=== PATIENT | female | born 1955 | race Caucasian/White ===

== ENCOUNTER 2019-07-06 08:18 | Day surgery (SDC) | payer BC ==
[2019-07-05 15:51] LABS: Basophils # (auto) 0 10 ^3/uL (0-0.2); Basophils % (auto) 0.3 % (0.0-2.0); Eosinophils # (auto) 0 10 ^3/uL (0-0.8); Eosinophils % (auto) 0.4 % (0.0-7.0); Hematocrit 41.5 % (36.0-46.0); Hemoglobin 14.2 g/dL (12.2-16.2); Lymphocytes # (auto) 2.5 10 ^3/uL (0.4-5.4); Lymphocytes % (auto) 19.4 % (10.0-50.0); Mean Corpuscular Hemoglobin 31.3 pg (28.0-32.0); Mean Corpuscular Hgb Conc. 34.2 g/dL (32.0-36.0); Mean Corpuscular Volume 91.4 fL (80.0-100.0); Monocytes # (auto) 0.9 10 ^3/uL (0-1.3); Monocytes % (auto) 7.1 % (0.0-12.0); Neutrophils # (auto) 9.4 10 ^3/uL (1.6-8.6); Neutrophils % (auto) 72.8 % (37.0-80.0); Nucleated Red Blood Cells % 0.1 %; Platelet Count (auto) 281 10^3/uL (140-450); Red Blood Cells 4.55 10^6/uL (4.0-5.20); Red Cell Distribution Width 12.4 % (11.8-14.3); White Blood Cell 12.9 10^3/uL (4.4-10.8)
[2019-07-05 15:52] LABS: Urine Bacteria FEW /hpf (None Seen); Urine Blood Negative /uL (Negative); Urine Mucus FEW (None Seen); Urine WBC <1 /hpf (0 - 5)
[2019-07-05 16:05] LABS: INR 1.03 (0.9-1.15)
[2019-07-05 16:07] LABS: Albumin 4.2 g/dL (3.4-5.0); Calcium 8.7 mg/dL (8.5-10.1); Potassium 3.5 mmol/L (3.5-5.1)
[2019-07-05 16:11] LABS: BUN/Creatinine Ratio 13.2; Bilirubin, Total 0.5 mg/dL (0.2-1.0); Total Protein 7.5 g/dL (6.4-8.2)
[~2019-07-06] VITALS: Ht 165.1 cm; Wt 79.4 kg
[2019-07-06] MEDS ORDERED: CLINDAMYCIN 600MG IV 50 ML IV ONE (09:44)
[2019-07-06] MEDS ORDERED: MIDAZOLAM HCL 1MG/1ML-2 ML VIAL ONE (10:14)
[2019-07-06] MEDS ORDERED: PROPOFOL 10 MG/ML 20 ML IV ONE (10:15)
[2019-07-06] MEDS ORDERED: LIDOCAINE 1% (LOCAL ANESTH.) PF 5ml SDV ONE (10:15)
[2019-07-06] MEDS ORDERED: ROCURONIUM 10MG/ML 10ML VIAL IV ONE (10:15)
[2019-07-06] MEDS ORDERED: METOCLOPRAMIDE HCL 5MG/ml INJ 2ml VIAL ONE (10:17)
[2019-07-06] MEDS ORDERED: fentaNYL CITRATE 100 MCG/2 ML VL ONE (10:26)
[2019-07-06] MEDS ORDERED: HYDROmorphone HCL 2 MG/ML VL IV PRN (10:30)
[2019-07-06] MEDS ORDERED: ONDANSETRON HCL 4 MG/2 ML VIAL IV PRN (10:30)
[2019-07-06] MEDS ORDERED: NALOXONE HCL 0.4 MG/ML VIAL IV PRN (10:30)
[2019-07-06] MEDS ORDERED: NEOSTIGMINE 1 MG/ML INJ (10mg/10ML VIAL) ONE (11:37)
[2019-07-06] MEDS ORDERED: GLYCOPYRROLATE 0.2 MG/ML 1ML VIAL ONE (11:37)
[2019-07-06] MEDS ORDERED: MEPERIDINE HCL (25 MG/ML) 1ML VIAL ONE (11:42)
[2019-07-06] MEDS: HYDROmorphone HCL 2 MG/ML VL IV PRN ×2 (12:27→12:42)
[2019-07-06 13:14] VITALS: BP 128/58
== END 2019-07-06 13:24 | disposition home or self-care (01) ==
LOC: SUR 08:18
PROVIDERS: ATTEND Orthopaedic Surgery
DX: S93.439A Sprain of tibiofibular ligament of unspecified ankle, initial encounter (principal); S82.841A Displaced bimalleolar fracture of right lower leg, initial encounter for closed fracture; S93.421D Sprain of deltoid ligament of right ankle, subsequent encounter; I10 Essential (primary) hypertension; Z91.041 Radiographic dye allergy status; K21.9 Gastro-esophageal reflux disease without esophagitis; J45.909 Unspecified asthma, uncomplicated; Z88.8 Allergy status to other drugs, medicaments and biological substances; Z79.899 Other long term (current) drug therapy; X58.XXXA Exposure to other specified factors, initial encounter; Y93.89 Activity, other specified; Y92.89 Other specified places as the place of occurrence of the external cause; Y99.8 Other external cause status
CPT/HCPCS: 27695; 27792; 27829; 36415; 73600; 80053; 81001; 85025; 85610; 85730; C1713; J1170; J2175; J2250; J2704; J2765; J3010; J3490; 76000

== ENCOUNTER 2020-10-07 08:39 | Emergency (ER) | payer MEDICARE, BC ==
[~2020-10-07] VITALS: Ht 165.1 cm; Wt 79.8 kg
[2020-10-07 08:39] VITALS: BP 137/86
== END 2020-10-07 11:06 | disposition home or self-care (01) ==
LOC: ER 08:39
DX: M79.661 Pain in right lower leg (principal); I10 Essential (primary) hypertension; Z88.0 Allergy status to penicillin; W18.39XA Other fall on same level, initial encounter; Y93.89 Activity, other specified; Y92.89 Other specified places as the place of occurrence of the external cause; Y99.8 Other external cause status
CPT/HCPCS: 93971